=== PATIENT | female | born 1985 | race Caucasian/White ===

== ENCOUNTER 2022-07-20 10:20 | Outpatient (CLI) | payer MEDICAID, SELFPAY ==
[2022-07-20 10:46] VITALS: BP 117/72; PULSE 96; TEMP 36.9; O2SAT 98
[2022-07-20 10:48] VITALS: BMI 25.5
[2022-07-20 11:44] LABS: ROM Internal Control Test YES-OK TO RESULT pt. (Internal QC); ROM Patient Test Negative (Negative)
--- NOTE | 2022-07-20 17:29 | OB.TRI.NOTE ---
HPI - General General Date of Service: 07/20/22 HPI Narrative JAMIE KINGSLEY, is a 36 F @ 35.4 weeks who presents r/o labor PFSH PFS Medical History (Updated 07/20/22 @ 17:[address] Alma Estrella MD) delivery Home Medications NK 07/20/22 [History Last Taken Unknown] Allergy/AdvReac Type Severity Reaction Status Date / Time No Known Allergies Allergy Verified 07/20/22 10:49 NST FHR Rate Baby A Baseline: 135 Variability:: Moderate Accelerations:: 15 x 15 Decelerations:: None NST Reactive:: Yes FHR Category:: Category I Uterine Activity:: irregular (not reports not painful) Assessment & Plan (1) 35 weeks gestation of : (2) contractions: (3) AMA (advanced maternal age) multigravida 35+: (4) Insufficient care in third trimester: (5) History of delivery, currently : (6) History of pre-eclampsia in prior , currently : PLAN: Plan @ 35.6 weeks- false labor 1) contractions - not in labor - cervical exam per RN was unchanged- dc home 2) NST reactive 3) ROM PLUS was negative- membranes intact. follow up in office as scheduled.
== END 2022-07-20 12:35 | disposition home or self-care (01) ==
LOC: WPOUT 10:46 → WP 10:47
PROVIDERS: PCP Family Medicine; Referring Provider Obstetrics & Gynecology; Visit Provider Obstetrics & Gynecology
DX: O47.03 False labor before 37 completed weeks of gestation, third trimester (principal); Z3A.35 35 weeks gestation of pregnancy; O09.523 Supervision of elderly multigravida, third trimester; O09.33 Supervision of pregnancy with insufficient antenatal care, third trimester; O09.213 Supervision of pregnancy with history of pre-term labor, third trimester
CPT/HCPCS: 59025; 59050; 84112; 99221; G0378

== ENCOUNTER 2022-07-30 12:10 | Outpatient (CLI) | payer MEDICAID, SELFPAY ==
[2022-07-30 12:34] VITALS: BP 130/83; PULSE 94; RESP 16; TEMP 36.3; O2SAT 97; BMI 25.7
[2022-07-30] MEDS: 0.9% NaCl IVPB Med Flush (250 mL) 15 ML IV (12:37)
[2022-07-30] MEDS: 0.9% NaCl Peripheral Flush Adult/Peds IV (12:37)
[2022-07-30 13:46] VITALS: BP 122/74; PULSE 96; RESP 16; TEMP 36.4; O2SAT 97
== END 2022-07-30 12:11 | disposition home or self-care (01) ==
LOC: MEDOUTP 12:13
PROVIDERS: PCP Family Medicine; Referring Provider Obstetrics & Gynecology; Visit Provider Obstetrics & Gynecology
DX: O99.013 Anemia complicating pregnancy, third trimester (principal); D50.9 Iron deficiency anemia, unspecified; Z3A.00 Weeks of gestation of pregnancy not specified
CPT/HCPCS: 96365; J1756; J7050; A4216

== ENCOUNTER 2022-08-03 12:24 | Outpatient (CLI) | payer MEDICAID, SELFPAY ==
[2022-08-03 12:44] VITALS: BP 123/75; PULSE 79; RESP 16; TEMP 36.7; O2SAT 97; BMI 25.7
[2022-08-03] MEDS: 0.9% NaCl IVPB Med Flush (250 mL) 15 ML IV (12:54)
[2022-08-03] MEDS: 0.9% NaCl Peripheral Flush Adult/Peds IV (12:54)
[2022-08-03 13:48] VITALS: BP 114/66; PULSE 78; RESP 16; TEMP 36.7; O2SAT 96
== END 2022-08-03 12:25 | disposition home or self-care (01) ==
PROVIDERS: PCP Family Medicine; Referring Provider Obstetrics & Gynecology; Visit Provider Obstetrics & Gynecology
DX: D50.9 Iron deficiency anemia, unspecified (principal)
CPT/HCPCS: 96365; J1756; J7050; A4216

== ENCOUNTER 2022-08-05 13:32 | Outpatient (CLI) | payer MEDICAID, SELFPAY ==
[2022-08-05 13:46] VITALS: BP 134/66; PULSE 84; RESP 16; TEMP 36.4; O2SAT 98
[2022-08-05] MEDS: 0.9% NaCl Peripheral Flush Adult/Peds IV (13:52)
[2022-08-05] MEDS: 0.9% NaCl IVPB Med Flush (250 mL) 15 ML IV (13:55)
[2022-08-05 14:57] VITALS: BP 116/70; PULSE 80; RESP 16; TEMP 36.8; O2SAT 97
== END 2022-08-05 13:33 | disposition home or self-care (01) ==
LOC: MEDOUTP 13:32
PROVIDERS: PCP Family Medicine; Referring Provider Obstetrics & Gynecology; Visit Provider Obstetrics & Gynecology
DX: O99.013 Anemia complicating pregnancy, third trimester (principal); D50.9 Iron deficiency anemia, unspecified; Z3A.00 Weeks of gestation of pregnancy not specified
CPT/HCPCS: 96365; J1756; J7050; A4216

== ENCOUNTER 2022-08-07 13:07 | Outpatient (CLI) | payer MEDICAID, SELFPAY ==
[2022-08-07 13:17] VITALS: BP 111/71; PULSE 73; RESP 16; TEMP 36; O2SAT 100; BMI 25.7
[2022-08-07] MEDS: 0.9% NaCl Peripheral Flush Adult/Peds IV (13:25)
[2022-08-07] MEDS: 0.9% NaCl IVPB Med Flush (250 mL) 15 ML IV (13:25)
[2022-08-07 14:16] VITALS: BP 105/70; PULSE 77; RESP 16; O2SAT 98
== END 2022-08-07 13:08 | disposition home or self-care (01) ==
LOC: MEDOUTP 13:08
PROVIDERS: PCP Family Medicine; Referring Provider Obstetrics & Gynecology; Visit Provider Obstetrics & Gynecology
DX: O99.013 Anemia complicating pregnancy, third trimester (principal); D50.9 Iron deficiency anemia, unspecified; Z3A.00 Weeks of gestation of pregnancy not specified
CPT/HCPCS: 96365; J1756; J7050; A4216

== ENCOUNTER 2022-08-16 07:15 | Inpatient (IN) | payer MEDICAID, SELFPAY ==
[2022-08-16] VITALS (28 sets, daily range): BP systolic 110–145; BP diastolic 58–89; PULSE 68–111; RESP 16–18; TEMP 36.4–36.9; O2SAT 98–100; BMI 26.0
[2022-08-16 06:41] LABS: ROM Internal Control Test YES-OK TO RESULT pt. (Internal QC); ROM Patient Test Negative (Negative)
[2022-08-16] MEDS: Lactated Ringers 1,000 ML 50 ML IV (07:44)
[2022-08-16] MEDS: LACTATED RINGERS 500 ML 999 ML IV (07:45)
[2022-08-16 07:46] LABS: Absolute Lymphocyte Count 0.85 X10^3/uL (0.83-4.51); Absolute Neutrophil Count 10.2 X10^3/uL (2.0-7.7); Basophil# 0.06 X10^3/uL; Basophil% 0.5 % (0-1); Eosinophil# 0.01 X10^3/uL; Eosinophils% 0.1 % (0-5); Hematocrit 38.4 % (37-47); Hemoglobin 11.3 g/dL (12.0-15.0); Lymphocyte # 0.85 X10^3/ul (0.83-4.51); Lymphocyte % 7.1 % (19-41); Mean Corp Hgb Conc 29.4 g/dL (32-36); Mean Corpuscular Hgb 25.7 pg (27.0-32.0); Mean Corpuscular Volume 87.5 fL (81-99); Mean Platelet Vol. 10.2 fl (6.2-12.0); Monocyte# 0.75 X10^3/uL; Monocyte% 6.2 % (0-10); NRBC Flagged by Analyzer 0.2 % (0-5); Neutrophil # 10.16 X10^3/uL (2.7-7.7); Neutrophil % 84.6 % (47-70); POSITIVE MORPHOLOGY YES; Platelet Count 326 K/mm3 (150-450); Red Blood Count 4.39 M/mm3 (4.2-5.4)
[2022-08-16] MEDS: fentaNYL-bupivacaine (epidural) 100 ML BAG EPIDURAL (08:21)
[2022-08-16 08:33] LABS: Differential Indicated SCAN CRITERIA MET
[2022-08-16 08:34] LABS: Syphilis Antibodies Non-reactive
--- NOTE | 2022-08-16 09:24 | PCM.HP.OB ---
HPI - General General Date of Admission: 08/16/22 HPI Narrative JAMIE KINGSLEY, is a 36 F who presents with ctxs. Maternal Data Information Final MYNOR: 08/20/22 Gestational age: 39&3 PFSH PFSH Medical History delivery Allergy/AdvReac Type Severity Reaction Status Date / Time No Known Allergies Allergy Verified 08/16/22 05:51 Social History Smoking Status: Current some day smoker History Elective abortions Hx Para 3 Spontaneous abortions Hx # Term Pregnancies Ectopic pregnancies Hx # Pregnancies Multiple births # of living children NST FHR Rate Baby A Baseline: 135 Variability:: Moderate Accelerations:: 15 x 15 Decelerations:: None Uterine Activity:: Q 2-3 minutes Vital Signs Vital Signs Vital Signs: 08/16/22 05:56 08/16/22 05:56 08/16/22 05:55 Temperature Temperature Source Pulse Rate 99 Blood Pressure 129/89 H BP Systolic 129 BP Diastolic 89 Pulse Ox 100 08/16/22 05:55 08/16/22 05:55 08/16/22 07:12 Temperature 98.4 F Temperature Source Temporal Pulse Rate 91 Blood Pressure BP Systolic BP Diastolic Pulse Ox 08/16/22 07:12 08/16/22 07:17 08/16/22 07:17 Temperature Temperature Source Pulse Rate 97 Blood Pressure BP Systolic BP Diastolic Pulse Ox 99 98 08/16/22 08:08 08/16/22 08:11 08/16/22 08:11 Temperature 97.5 F L Temperature Source Pulse Rate 88 Blood Pressure 145/85 H BP Systolic 145 BP Diastolic 85 Pulse Ox 08/16/22 08:11 08/16/22 08:11 08/16/22 08:05 Temperature Temperature Source Tympanic Pulse Rate 90 Blood Pressure BP Systolic BP Diastolic Pulse Ox 99 08/16/22 08:05 08/16/22 08:05 08/16/22 08:16 Temperature 97.6 F L Temperature Source Pulse Rate 92 Blood Pressure BP Systolic BP Diastolic Pulse Ox 99 08/16/22 08:16 08/16/22 08:18 08/16/22 08:18 Temperature Temperature Source Pulse Rate 93 Blood Pressure 129/82 H BP Systolic 129 BP Diastolic 82 Pulse Ox 98 08/16/22 08:21 08/16/22 08:21 08/16/22 08:21 Temperature Temperature Source Pulse Rate 88 Blood Pressure 118/59 L BP Systolic 118 BP Diastolic 59 Pulse Ox 100 08/16/22 08:26 08/16/22 08:26 08/16/22 08:26 Temperature Temperature Source Pulse Rate 93 98 Blood Pressure 118/63 BP Systolic 118 BP Diastolic 63 Pulse Ox 08/16/22 08:26 08/16/22 08:31 08/16/22 08:31 Temperature Temperature Source Pulse Rate 111 H Blood Pressure 110/64 BP Systolic 110 BP Diastolic 64 Pulse Ox 100 08/16/22 08:31 08/16/22 08:31 08/16/22 08:59 Temperature 97.9 F Temperature Source Pulse Rate 105 H Blood Pressure BP Systolic BP Diastolic Pulse Ox 100 Weight Weight: 138 lb Body Mass Index (BMI) 26.0 Physical Exam Const alert and oriented x3 Chest inspection of chest normal GI soft to palpation, non-tender and non-distended Inspection: gravid external exam normal Narrative: cvx - 8/70/-2, AROM clear fluid Extremity normal to inspection Neuro moves all extremities Labs Labs Labs: Blood Type A POSITIVE Antibody Screen NEGATIVE Hct 38.4 % (37-47) Hgb 11.3 g/dL (12.0-15.0) L Syphilis Total Ab Non-reactive See [facility] prenatals Assessment & Plan (1) AMA (advanced maternal age) multigravida 35+: COMMENT: 39&3 (2) Insufficient care in third trimester: PLAN: Plan Admit to L&D GBS negative Pain - epidural Social work consult PP - late PNC & FOB of overdose during Expectant management
[2022-08-16 09:34] LABS: Amphetamine Urine VISTA NEGATIVE (<1000 ng/mL); Barbiturate Urine VISTA NEGATIVE (< 200 ng/mL); Benzodiazepine Urine VISTA NEGATIVE (< 200 ng/mL); Cocaine Urine VISTA NEGATIVE (< 300 ng/mL); Ecstacy Urine VISTA NEGATIVE (< 500 ng/mL); Methadone Urine VISTA NEGATIVE (< 300 ng/mL); PCP Urine VISTA NEGATIVE (< 25 ng/mL); THC Urine VISTA NEGATIVE (< 50 ng/mL); Vista UDS pH Range 5
[2022-08-16 09:34] LABS: Anisocytosis 2+; Differential Comment SCANNED
[2022-08-16] MEDS: Oxytocin 15 Units/NS 250ml 15 UNITS/250 ML IV.SOLN 2 UNITS IV (11:28)
--- NOTE | 2022-08-16 12:00 | EX.PCM.OBRPT ---
Maternal Data Information Final MYNOR: 08/20/22 Gestational age: 39&3 Vaginal Delivery Maternal Presentation Maternal Presentation: Active Labor Operative Information Date of Procedure: 08/16/22 Pre-Operative Diagnosis: Labor Post-Operative Diagnosis: Labor Surgery / Procedure Performed: Spontaneous Vaginal Delivery Type of Anesthesia: Epidural Drain: Patrick to straight drain Estimated Blood Loss: 250ml Findings Description of Procedure: Patient prepped & draped when C/C/+1. She pushed well to deliver the head. head gently guided & no release of anterior shoulder. Shoulder dystocia recognized & extra help called. Patient put in Mateus and with good maternal pushing in addition to gently guiding the head the anterior shoulder released. Posterior shoulder then delivered easily. No excess traction placed on head. Body delivered and 3VC clamped & cut. Placenta delivered with gentle traction and good uterine tone obtained. Presentation: OSEI Amniotic Membrane Rupture Type: Artificial Amniotic Fluid Description: Lightly stained meconium Placental Delivery Description: Expressed Placenta Disposition: [facility] Specimen(s) Removed: Placenta Cord Vessel Description: 3 Vessels Cord Entanglement: None Infant A Gender: Male (Hu) (1 minute): 8 (5 minute): 9 Delayed Cord Clamping: No Post Vaginal Delivery Medications Given After Delivery: IV Pitocin Episiotomy Description: None Laceration: None Complication Complications: None
[2022-08-16] MEDS: Acetaminophen 500 MG Tablet 1000 MG PO ×2 (13:02→20:44)
[2022-08-16] MEDS: Oxytocin 15 Units/NS 250ml 15 UNITS/250 ML IV.SOLN 83 UNITS IV (13:03)
[2022-08-16] MEDS: Ibuprofen 600 MG Tablet PO (18:06)
[2022-08-16] MEDS: Benzocaine/Lanolin/Aloe Vera 1 SPRAY EACH TOPICAL (20:44)
[2022-08-17] VITALS (9 sets, daily range): BP systolic 105–124; BP diastolic 62–75; PULSE 72–82; RESP 14–16; TEMP 36.1–37.1; O2SAT 97–99
[2022-08-17] MEDS: Acetaminophen 500 MG Tablet 1000 MG PO ×2 (07:34→21:00)
--- NOTE | 2022-08-17 08:35 | PCM.PN.OB ---
Subjective Subjective Doing well per patient and nursing staff. Ambulating and taking PO without difficulty. Voiding and passing flatus. Pain controlled. Denies headache, visual changes, chest pain, shortness of breath, leg pain or increased bleeding. Lochia normal. Objective Data Objective Data Vital Signs: Vital Signs Temp Pulse Resp BP Pulse Ox O2 Del Method 97.7 F L 73 16 114/67 97 Room Air 08/17/22 07:42 08/17/22 07:42 08/17/22 07:42 08/17/22 07:42 08/17/22 07:42 08/17/22 07:42 Oxygen Delivery Method Room Air Weight: 138 lb Body Mass Index (BMI) 26.0 Intake & Output: Intake and Output for Last 24 Hours 08/15/22 08/16/22 08/17/22 23:59 23:59 23:59 Intake Total 1780.00 / 1780.00 Balance 1780.00 / 1780.00 Lab / Micro Data Result Diagrams: 08/16/22 07:30 Labs: Laboratory Results - last 24 hr 08/16/22 07:30: Differential Comment SCANNED, Anisocytosis 2+ 08/16/22 07:30: Blood Type A POSITIVE, Antibody Screen NEGATIVE 08/16/22 09:00: Urine Opiates Screen NEGATIVE, Urine Methadone Screen NEGATIVE, Ur Barbiturates Screen NEGATIVE, Ur Phencyclidine Scrn NEGATIVE, Ur Amphetamines Screen NEGATIVE, MDMA (Ecstasy) Screen NEGATIVE, U Benzodiazepines Scrn NEGATIVE, Urine Cocaine Screen NEGATIVE, U Cannabinoids Screen NEGATIVE, Ur Drug Screen Comment Physical Exam Const alert and oriented x3 General Appearance: cooperative Orientation / Consciousness: awake, oriented to person, oriented to place and oriented to time Exam Limitations: no limitations HEENT normocephalic Head and Scalp: normal to inspection, normocephalic and atraumatic Face and Sinus: normal facial exam Eyes General Eye: normal appearance of both eyes Neck full ROM Chest Chest: symmetrical chest wall rise Resp normal respiratory effort and normal air movement Auscultation: clear to auscultation bilaterally Cardio regular rate, regular rhythm, S1 normal heart sound, S2 normal heart sound, no murmurs, no rub, no gallops and no clicks GI normal to inspection, nondistended, normoactive bowel sounds and non-tender appearance of the vagina normal Bladder / Kidney Exam: no CVA tenderness Back/Spine normal ROM Extremity normal to inspection and full ROM Skin no rashes or lesions noted Neuro oriented x3, CN's II-XII intact bilaterally and moves all extremities Sensorium / Orientation: awake, alert and oriented to person Motor Exam: clonus absent Deep Tendon Reflexes: Rt Patellar (L4): 2+ and Lt Patellar (L4): 2+ Assessment & Plan (1) Vaginal delivery: PLAN: Plan 1) Routine PP care 2) Vitals stable 3) Planning D/C home tomorrow 4) Social service consult due to partner passing during and at risk for PP depression.
[2022-08-17] MEDS: Senna/Docusate Sodium 1 Tablet PO (15:05)
--- NOTE | 2022-08-17 16:20 | CASEMGMT ---
Social Work Assessment Labor and Delivery Unit Patient Address: [address] [place] Phone number: [phone] Date of Referral: 08/16/22 Referred By: Dr. Persaud Date of Intervention: 08/17/2022 Time of Intervention: 2:15 Reason for Referral: Social Concerns History obtained from: medical records and mother of baby (MOB) Household composition: MOB, mother and stepfather, and 4 year old son Patient's parent/guardian status: MOB and father of the baby were together off and on for many years. FOB, Jorge, in March due to overdose. MOB reports she has a 17 year old and 18 year old that live with their father. She has custody of her 4 year old and Jorge is the father of the 4 year old and new baby. Medical History: MOB reports 4 children total. Limited care received in 3rd trimester for current baby. Baby Boy, Hu Rhodes, 8lbs 3oz and 8/9 apgars. Mother is bottle feeding. ?? Educational Status: No literacy concerns Financial Status: No financial concerns Infant Supplies: MOB notes having a car seat and crib/bassinet and all other necessary supplies for baby. Childcare/Caregiver(s): MOB, grandmother and grandfather Transportation: No transportation concerns Programs/Agencies Involved: Medicaid Children Services/Legal Issues: No current legal concerns. MOB does report CPS involvement when children?s father was living in the same home due to his drug use. MOB reports she stopped living with their father due to CPS concerns. MOB reports she wanted him to get help and treatment but he would always stop going and was incarcerated off and on. MOB believes the case was closed. Behavioral Health Issues: ?MOB denies history of mental illness concerns. MOB has been grieving the loss of the FOB but denies any serious depression concerns at this time. Denies PPD in the past. MOB reports her mother may have undiagnosed mental illness. MOB denies substance abuse but she is a smoker. MOB is negative for substances. Family/Social Stressors: KATHY due to overdose March 13, 2022. Support Systems: MOB reports mother and stepfather are supportive, and she has some friends. Depression: Education provided and resources given. In depth discussion about PPD due to risk factors and grief. MOB receptive. Shaken Baby: Education provided and MOB receptive. Safe Sleeping: Education provided and MOB receptive. ASSESSMENT: MOB appropriate and denies concerns at this time. MOB is tearful when discussing FOB who during her . Emotional support and encouragement provided. Mental Health resources for [facility] provided. MOB requests Help Me [facility] referral. PLAN: Referral placed for Help Me [facility]. No other services indicated at this time. Delia Huggins [employer], [employer]
[2022-08-18] VITALS (7 sets, daily range): BP systolic 101–134; BP diastolic 52–83; PULSE 70–99; RESP 16–18; TEMP 36.4–36.9; O2SAT 92–100
--- NOTE | 2022-08-18 08:51 | PCM.PN.OB ---
Subjective Subjective Patient seen at bedside. Feeling good. Denies any pain. Ambulating and voiding without difficulty. Bottle feeding infant. Desires discharge home today. Objective Data Objective Data Vital Signs: Vital Signs Temp Pulse Resp BP Pulse Ox O2 Del Method 97.5 F L 70 16 101/52 L 92 Room Air 08/18/22 02:01 08/18/22 02:01 08/18/22 02:00 08/18/22 02:01 08/18/22 02:01 08/18/22 02:00 Oxygen Delivery Method Room Air Weight: 138 lb Body Mass Index (BMI) 26.0 Intake & Output: Intake and Output for Last 24 Hours 08/16/22 08/17/22 08/18/22 23:59 23:59 23:59 Intake Total 1780.00 / 1780.00 Balance 178. / 178.00 Lab / Micro Data Result Diagrams: 08/16/22 07:30 ROS Eyes Eyes: Denies blurry vision, change in vision or spots in vision ENT HEENT: Denies dizziness or headache(s) Cardiovascular Cardiovascular: Denies abdominal pain, chest pain or dyspnea Respiratory/Chest Respiratory/Chest: Denies cough, dyspnea, shortness of breath at rest or shortness of breath with exertion Gastrointestinal Gastrointestinal: Denies abdominal pain, diarrhea or vomiting Genitourinary Genitourinary: Denies change in urinary stream, difficulty urinating or dysuria Musculoskeletal Musculoskeletal: Reports none Integumentary Integumentary: Denies rash Neurologic Neurologic: Denies dizziness, headache(s), memory loss or weakness Physical Exam Const alert and no apparent distress General Appearance: cooperative and comfortable Exam Limitations: no limitations HEENT normocephalic Eyes General Eye: normal appearance of both eyes Neck full ROM General: normal visual inspection Chest Chest: symmetrical chest wall rise Resp normal respiratory effort and normal air movement Effort and Inspection: symmetric chest movement Auscultation: clear to auscultation bilaterally Cardio regular rate and regular rhythm GI normal to inspection, nondistended, normoactive bowel sounds Back/Spine normal ROM Extremity full ROM and no calf tenderness General Extremity: normal exam except as noted Skin no rashes or lesions noted Neuro CN's II-XII intact bilaterally Psych mental status grossly normal Assessment & Plan (1) Vaginal delivery: PLAN: Plan PPD 2 Routine care Pain control D/C home with follow up in office
--- NOTE | 2022-08-18 08:53 | DCINST_ITS ---
Discharge Instructions Diet Discharge Diet: No restrictions Activity Discharge Activity: Return to Normal Activity, May Shower and May Take a Tub Bath May resume sexual activity in: 4-6 weeks Weight Bearing Status: Weight bearing as tolerated Dressing / Incision Call your doctor if you observe: Inability to urinate, Using more than 1 pad per hour, Shortness of breath, Dizziness, Swelling in the ankles, Chest pain, Calf discomfort and Uncontrolled pain Follow Up Care When: Within 10 days Test Results: Test results from this visit will be discussed in further detail at your follow- up appointment, if applicable. Discharge Plan Admission Admit Date/Time: 08/16/22 07:15 Primary Reason for Your Visit: Labor and Delivery Attending Provider: Hung Lawson Primary Care Provider: Raheem Conti Discharge Orders/Prescriptions Referrals / Follow Up: Raheem Conti MD [Primary Care Provider] - Disposition Disposition (needs filled in before D/C Order can be placed): Home, Self Care
[2022-08-18] MEDS: Acetaminophen 500 MG Tablet 1000 MG PO (13:45)
== END 2022-08-18 17:00 | disposition home or self-care (01) | DRG 560 ==
LOC: WPOUT 07:20 → WP 07:20
PROVIDERS: Admitting Provider Obstetrics & Gynecology; PCP Family Medicine; Visit Provider Obstetrics & Gynecology
DX: O66.0 Obstructed labor due to shoulder dystocia (principal); Z37.0 Single live birth; F17.200 Nicotine dependence, unspecified, uncomplicated; O77.0 Labor and delivery complicated by meconium in amniotic fluid; O99.334 Smoking (tobacco) complicating childbirth; Z3A.39 39 weeks gestation of pregnancy; Z63.4 Disappearance and death of family member; Z87.59 Personal history of other complications of pregnancy, childbirth and the puerperium
CPT/HCPCS: 59025; 59050; 80307; 84112; 85025; 86780; 86850; 86900; 86901; 99221; J7120; G0378